=== PATIENT | female | born 1985 | race Caucasian/White ===

== ENCOUNTER 2019-03-27 09:07 | Emergency (ER) | payer OTHER, SELFPAY ==
[2019-03-27 09:12] VITALS: BP 111/70; PULSE 90; RESP 16; TEMP 36.2; O2SAT 99
--- NOTE | 2019-03-27 10:07 | ED.URI ---
HPI - URI/Sore Throat General Chief Complaint: Upper Respiratory Infection Stated Complaint: FEVER/SORE THROAT Time Seen by Provider: 03/27/19 09:59 Source: patient Mode of arrival: ambulatory Limitations: no limitations History of Present Illness HPI Narrative: 33-year-old female presents for evaluation of respiratory symptoms. Patient reports symptoms developed on Monday, 2 days ago. She is reporting a temperature of 101, sore throat, clear rhinorrhea, mild dizziness and headache, body aches, chills, nonproductive cough. She is used Tylenol, ibuprofen, DayQuil for her symptoms. She has been exposed to her children with URI symptoms that only lasted a few days. She did not get a flu shot this season. She denies smoking. No previous medical history and no daily medications. Denies any wheezing, shortness of breath, chest pain, decreased urine output, weakness Related Data Allergies Allergy/AdvReac Type Severity Reaction Status Date / Time No Known Allergies Allergy Unverified 01/28/13 17:02 Review of Systems Review of Systems: Narrative: CONSTITUTIONAL: Denies weight loss.reports fever, chills sweats. EYES: Denies visual changes, redness, or discharge. ENT: Reports rhinorrhea, congestion, sore throat. Denies otalgia. CARDIOVASCULAR: Denies chest pain, palpitations, or edema. RESPIRATORY: Denies dyspnea. Reports cough GASTROINTESTINAL: Denies abdominal pain, nausea, vomiting, or diarrhea. GENITOURINARY: Denies dysuria, hematuria, urinary frequency, malordous urine SKIN: Denies rash or itching. MUSCULOSKELETAL: Denies back pain, joint pain, swelling. Reports myalgias NEUROLOGIC: Denies numbness, weakness. Reports headache and dizziness PSYCHIATRIC: Denies anxiety or depression. All systems reviewed & are unremarkable except as noted in HPI and below PMFSH Comments At the time of my signature, I agree with nursing past medical, surgical, social and family history. There is no relevant family history pertinent to the presenting complaint. Exam Narrative: Exam Narrative: GENERAL: No distress, well appearing, well nourished, alert and calm HEAD: Normocephalic, atraumatic. No sinus tenderness noted EYES: Pupils equal, round. Extraocular movements intact. Conjunctivae without redness or drainage. EARS: Tympanic membranes without erythema. TM landmarks intact with good light reflex. Ear canals without discharge. NOSE: Nares patent. Nasal turbinates noninflamed. No nasal discharge MOUTH: Mucous membranes moist. No lesions. No cyanosis. Dentition grossly normal. THROAT: Oropharynx without signs erythema, exudates or lesions. Tonsils not enlarged. NECK: Supple. No lymphadenopathy. RESPIRATORY: Airway patent. Chest clear to auscultation bilaterally. Breath sounds equal bilaterally. No retractions. CARDIOVASCULAR: Regular rate and rhythm. No murmurs, rubs, gallops, or clicks. Capillary refill <2 seconds. MUSCULOSKELETAL: Range of motion grossly normal in all four extremities. Strength grossly normal in all four extremities. No edema. No swelling SKIN: Color normal. Warm and dry. No rashes. NEURO: Alert. Motor intact in all extremities. Muscle tone normal. Cranial nerves II through XII grossly intact Course Vital Signs Vital signs: Vital Signs Temperature 97.1 F L 03/27/19 09:12 Pulse Rate 90 03/27/19 09:12 Respiratory Rate 16 03/27/19 09:12 Blood Pressure 111/70 03/27/19 09:12 Pulse Oximetry 99 03/27/19 09:12 Temperature 97.1 F L 03/27/19 09:12 Pulse Rate 90 03/27/19 09:12 Respiratory Rate 16 03/27/19 09:12 Blood Pressure 111/70 03/27/19 09:12 Pulse Oximetry 99 03/27/19 09:12 Reviewed MDM - URI/Sore Throat MDM Narrative Medical decision making narrative: Patient is in no acute distress and is non toxic appearing. Influenza A swab positive. Educated about condition and treatment with Tamiflu as well as common side effects associated with medication. Patient reports she wants to try Ta
== END 2019-03-27 10:21 | disposition home or self-care (01) ==
PROVIDERS: Emergency Provider Nurse Practitioner; PCP Internal Medicine
DX: J10.1 Influenza due to other identified influenza virus with other respiratory manifestations (principal)
CPT/HCPCS: 87081; 87804; 87880; 99203; G0463

== ENCOUNTER 2023-10-23 07:35 | Outpatient (CLI) | payer OTHER, SELFPAY ==
--- NOTE | ~2023-10-23 | MM_ITS ---
EXAMINATION: MM screening henry BI w ramon HISTORY: Screening mammogram TECHNIQUE: Craniocaudal and mediolateral oblique 3-D tomosynthesis images were obtained and synthetic 2-D images were generated. CAD analysis was submitted and interpreted. COMPARISON: No prior mammogram is available for comparison at this institution. BREAST PARENCHYMAL COMPOSITION:Not Dense. There are scattered areas of fibroglandular density. FINDINGS: No suspicious mass, calcification, or architectural distortion are identified in either victor m ast to suggest malignancy. There has been no suspicious interval change. IMPRESSION: No mammographic evidence of malignancy. Recommend routine screening mammography in one year. BI-RADS Category 1: Negative Reviewed, dictated and finalized at location .
== END 2023-10-23 07:36 | disposition home or self-care (01) ==
LOC: ANHIMG 07:37
PROVIDERS: PCP Internal Medicine; Visit Provider Obstetrics & Gynecology
DX: Z12.31 Encounter for screening mammogram for malignant neoplasm of breast (principal)
CPT/HCPCS: 77063; 77067

== ENCOUNTER 2024-11-29 07:19 | Outpatient (CLI) | payer OTHER, SELFPAY ==
--- NOTE | ~2024-11-29 | MM_ITS ---
EXAMINATION: MM screening henry BI w ramon HISTORY: Screening TECHNIQUE: Craniocaudal and mediolateral oblique 3-D tomosynthesis images were obtained and synthetic 2-D images were generated. CAD analysis was submitted and interpreted. COMPARISON: 10/23/2023 BREAST PARENCHYMAL COMPOSITION: The breasts are heterogeneously dense, which may obscure small masses. FINDINGS: There is no evidence of suspicious mass, calcification, or architectural distortion to suggest malignancy. There has been no suspicious interval change. IMPRESSION: 1. No mammographic evidence of malignancy. Recommend routine screening mammography in one year. BI-RADS Category 2: Benign finding(s) Reviewed, dictated and finalized at location [facility]. IMPRESSION: 1. No mammographic evidence of malignancy. Recommend routine screening mammogra phy in one year. BI-RADS Category 2: Benign finding(s)
== END 2024-11-29 07:20 | disposition home or self-care (01) ==
LOC: ANHFOHIMG 07:20
PROVIDERS: Visit Provider Obstetrics & Gynecology
DX: Z12.31 Encounter for screening mammogram for malignant neoplasm of breast (principal)
CPT/HCPCS: 77063; 77067